=== PATIENT | male | born 1985 | race African-American/Black ===

== ENCOUNTER 2018-05-09 12:47 | Emergency (ER) | payer SELFPAY ==
[~2018-05-09] VITALS: Ht 175.3 cm; Wt 129.0 kg
[2018-05-09 12:53] VITALS: BP 145/96
== END 2018-05-09 18:41 | disposition left against medical advice (07) ==
LOC: ER 13:59
DX: Z53.21 Procedure and treatment not carried out due to patient leaving prior to being seen by health care provider (principal)